=== PATIENT | male | born 1990 | race Caucasian/White ===

== ENCOUNTER 2018-09-04 02:30 | Emergency (ER) | payer OTHER ==
[~2018-09-04] VITALS: Ht 167.6 cm; Wt 68.2 kg
[2018-09-04] MEDS ORDERED: diphenhydrAMINE 50 MG CAP PO ONE (04:30)
[2018-09-04 04:58] VITALS: BP 122/81
== END 2018-09-04 05:14 | disposition home or self-care (01) ==
LOC: M ED 02:30
DX: R21 Rash and other nonspecific skin eruption (principal)